=== PATIENT | female | born 1965 | race Two or more races ===

== ENCOUNTER 2025-09-24 23:21 | Emergency (ER) | payer SELFPAY ==
[~2025-09-24] VITALS: Ht 160 cm; Wt 86.0 kg
[2025-09-24 23:25] VITALS: TEMP 98.1
--- NOTE | 2025-09-24 23:32 | Physician Documentation ---
History of Present Illness ~ Chief Complaint: Mechanical Fall Stated Complaint: LAC Time Seen by MD: 23:30 HPI 59-year-old female, brought in by ambulance with a fall and head injury Per report, the patient was at a bar, was drinking alcohol. She tripped and fell backwards, hit the back of her head on the ground. Unknown loss of consciousness. She does have a laceration. The patient does report mild pain in the back of her head. She denies any neck pain. She denies any other associated injuries or concerns. History is somewhat limited due to her alcohol use Medication Reconciliation Allergies: Coded Allergies: No Known Allergies (Unverified , 09/24/25) Review of Systems Neurological: Reports: headache Integumentary: Reports: laceration(s) Physical Exam Vital Signs: Temperature: 98.1, Source: Oral, Heart Rate: 65, Respiratory Rate: 16, BP: 122/81, Pulse Oximetry: 98, Weight: 86.000 Oxygen Flow Rate: 2.0 Physical Exam General: This is a middle-aged woman, appears likely clinically intoxicated, with blood on the pillow behind her head HEENT: The patient has a full-thickness 2 cm laceration of the posterior scalp, no active bleeding Heart: Regular rate and rhythm, normal-appearing peripheral perfusion Lungs: normal work of breathing, normal oxygen saturation on room air Extremities: Warm and well-perfused. Moves all 4 extremities without pain or limitation Neuro: Alert and oriented Psychiatric: Has a labile affect, slurred speech, appears clinically intoxicated Progress Results/Orders Results/Orders Orders - MICHELLE DOBBS MD Ct Head (09/24/25 23:50) Completed Orders - MICHELLE DOBBS MD Ct Head (09/24/25 23:50) Tetanus/Pertuss/Diph Acell/Pf (Boostrix (09/24/25 23:35) Medications Received in ER Medications (Trade) Dose Ordered Sig/Mariela Route PRN Reason Start Time Stop Time Status Last Admin Dose Admin (Boostrix vaccine syringe) 0.5 ml ONCE ONCE IMVAC 09/24/25 23:35 09/24/25 23:36 DC 09/25/25 00:02 0.5 ML Vital Signs 09/24/25 09/24/25 09/24/25 23:25 23:47 23:48 Temp 98.1 Pulse 65 69 Resp 16 16 16 B/P (MAP) 122/81 132/77 (95) Pulse Ox 98 97 O2 Flow Rate 2.0 0 Re-Evaluation Re-Evaluation : Re-Evaluation Time: 00:25 Progress Informed by staff that the patient has eloped from the emergency department EKG/XRAY/CT/US/VASC/MRI CT : Impression I personally interpreted the CT scan, and this shows no acute intracranial hemorrhage Medical Decision Making Additional information obtaine: other Findings Reviewed EMS report Differential Dx:Considerations: Include: Closed head injury, Fracture(s), Cerebral contusion, Hematoma(s), Laceration(s) Additional Comment The patient presents with a fall and head injury in the setting of alcohol use. On exam she has a laceration of the posterior scalp, but no neck pain or other traumatic findings. Unknown last tetanus shot and so she was given a tetanus shot. CT scan shows no fracture or intracranial hemorrhage. Plan was to clean a repair her scalp laceration, but unfortunately the patient eloped from the emergency department. Departure Time of Disposition: 00:26 Disposition: 07 LEFT AWOL/ELOPED Impression: Primary Impression: Scalp laceration Additional Impression: Alcohol intoxication Condition: Stable Referrals: NO PRIMARY CARE PROVIDER (PCP) Signature Scribe Signature: na Attestation: MICHELLE Gibson MD Sep 24, 2025 23:32
[2025-09-24 23:47] VITALS: BP 132/77; PULSE 69; O2SAT 97
[2025-09-25] MEDS: TETanus/Pertussis (Acell)/Diphther VAC/PF (Tdap-Adult) 0.5ml syringe IMVAC ONE (00:02)
--- NOTE | 2025-09-25 00:15 | RADIOLOGY REPORT ---
CT CT HEAD INDICATION: fall, head injury and lac COMPARISON: None TECHNIQUE: CT of the head without intravenous contrast. RADIATION DOSE: CTDIvol: mGy, DLP: mGy*cm FINDINGS: No evidence of intracranial hemorrhage, infarct, extra-axial collection, mass effect, midline shift, herniation or hydrocephalus. Ventricles, sulci and cisterns are normal. Mild mucosal thickening in right maxillary sinus; otherwise unremarkable. Mastoid air cells and middle ear cavities are clear. Visualized orbits appear unremarkable. Soft tissues and osseous structures are unremarkable. IMPRESSION: No intracranial abnormality identified.
[2025-09-25 00:54] VITALS: RESP 16
== END 2025-09-25 00:58 | disposition left against medical advice (07) ==
LOC: ER 23:22
DX: S01.01XA Laceration without foreign body of scalp, initial encounter (principal); R51.9 Headache, unspecified; F10.129 Alcohol abuse with intoxication, unspecified; W01.0XXA Fall on same level from slipping, tripping and stumbling without subsequent striking against object, initial encounter; Y93.89 Activity, other specified; Y92.89 Other specified places as the place of occurrence of the external cause; Y99.8 Other external cause status; Y90.9 Presence of alcohol in blood, level not specified
CPT/HCPCS: 70450; 90471; 90715; 99285; A6449